=== PATIENT | female | born 1995 | race African-American/Black ===

== ENCOUNTER 2018-01-27 08:34 | Emergency (ER) | payer OTHER ==
[~2018-01-27] VITALS: Ht 149.9 cm; Wt 70.0 kg
[~2018-01-27 08:34] MED LIST: IBUP-232 PO
[2018-01-27 08:51] VITALS: BP 127/60; PULSE 78; RESP 16; TEMP 98; O2SAT 97
[2018-01-27] MEDS ORDERED: BENZ1CAP54 PO (09:30)
--- NOTE | 2018-01-27 09:32 | PD ---
HPI Chief Complaint: Cold / Flu Symptoms Time Seen by Provider: 09:23 Travel History International Travel<30 days: No Contact w/Intl Traveler<30days: No Traveled to known affect area: No History of Present Illness HPI 22-year-old female presents emergency department for evaluation of a cough, congestion, headache that started approximately 2 days ago. Patient states that she had food poisoning 2 days ago which included a significant amount of vomiting and diarrhea. Says her cough is productive of yellow sputum patient states that she try to go back to work yesterday however, she continued to be nauseous and have a cough so she was sent home. Patient denies fevers or chills. Says she has had occasional subjective feelings of warmth but denies actual temperature. Currently she denies nausea, vomiting or diarrhea. Denies chest pain, shortness breath, back pain, abdominal pain. She has no other health complaints today. PFSH Past Medical History Medical History: Denies Significant Hx Diminished Hearing: No Immunizations Current: Yes Influenza Vaccination: No ?: Not Past Surgical History Surgical History: No Previous Surgery Social History Alcohol Use: No Tobacco Use: No Substance Use: No Allergies-Medications (Allergen,Severity, Reaction): Coded Allergies: No Known Allergies (Verified Adverse Reaction, Unknown, 01/27/18) Reported Meds & Prescriptions Reported Meds & Active Scripts Active Benzonatate 100 Mg Cap 100 Mg PO TID PRN 3 Days Review of Systems Except as stated in HPI: all other systems reviewed are Neg Physical Exam Narrative GENERAL: Well-nourished, well-developed patient. SKIN: Focused skin assessment warm/dry. HEAD: Normocephalic. EYES: No scleral icterus. No injection or drainage. Mild pharyngeal injection without tonsillar hypertrophy or exudate. NECK: Supple, trachea midline. No JVD or lymphadenopathy. CARDIOVASCULAR: Regular rate and rhythm without murmurs, gallops, or rubs. RESPIRATORY: Breath sounds equal bilaterally. No accessory muscle use. GASTROINTESTINAL: Abdomen soft, non-tender, nondistended. No CVA tenderness MUSCULOSKELETAL: No cyanosis, or edema. BACK: Nontender without obvious deformity. No CVA tenderness. Data Data Last Documented VS Vital Signs Date Time Temp Pulse Resp B/P (MAP) Pulse Ox O2 Delivery O2 Flow Rate FiO2 01/27/18 08:51 98.0 78 16 127/60 (82) 97 Room Air MDM Medical Decision Making Medical Screen Exam Complete: Yes Emergency Medical Condition: Yes Differential Diagnosis Post tussive cough, upper respiratory infection, allergic rhinitis Narrative Course 22-year-old female presents emergency department for evaluation of a cough, congestion, headache that started approximately 2 days ago. Patient states that she had food poisoning 2 days ago which included a significant amount of vomiting and diarrhea. Says her cough is productive of yellow sputum patient states that she try to go back to work yesterday however, she continued to be nauseous and have a cough so she was sent home. Patient denies fevers or chills. Says she has had occasional subjective feelings of warmth but denies actual temperature. Currently she denies nausea, vomiting or diarrhea. Denies chest pain, shortness breath, back pain, abdominal pain. She has no other health complaints today. Vital signs stable. Physical exam findings essentially unremarkable except for some obvious congestion in the nasal passages. I offered patient medication to help reduce her cough particularly at night. Patient should follow-up with her primary care physician. Return to emergency for worsening or persistent symptoms. Diagnosis Primary Impression: History of nausea and vomiting Additional Impression: Cough Referrals: [facility] Departure Forms: Tests/Procedures, Work Release Enter return to work date: Jan 30, 2018 Additional Instructions: All medication as prescribed. Ensure you have adequate fluid intake and proper nutrition. Recommend a BRAT diet for your previous food poisoning until you return to normal. Bananas, Rice, Applesauce, [place] Scripts Benzonatate (Benzonatate) 100 Mg Cap 100 MG PO TID Y for COUGH for 3 Days, CAP 0 Refills Prov: Jeremy Desai MD 01/27/18 Disposition: 01 DISCHARGE HOME Condition: Stable Myah Finley Jan 27, 2018 09:32
== END 2018-01-27 09:54 | disposition home or self-care (01) ==
LOC: PHEFT 08:34
DX: R05 Cough (principal); R11.2 Nausea with vomiting, unspecified; R51 Headache; R09.81 Nasal congestion
CPT/HCPCS: 99283